=== PATIENT | female | born 1980 | race Caucasian/White ===

== ENCOUNTER 2016-08-11 06:21 | Emergency (ER) | payer OTHER ==
[2016-08-11 06:56] LABS: URINE BILIRUBIN NEGATIVE (NEGATIVE); URINE BLOOD 1+ (NEGATIVE); URINE COLOR AMBER; URINE GLUCOSE (UA) NEGATIVE (NEGATIVE); URINE LEUKOCYTE ESTERASE NEGATIVE (NEGATIVE); URINE NITRITE NEGATIVE (NEGATIVE); URINE PROTEIN 2+ (NEGATIVE); URINE UROBILINOGEN 1 mg/dL (0-1 mg/dl)
[2016-08-11 06:57] LABS: URINE APPEARANCE CLOUDY
[2016-08-11 06:58] LABS: HCG,QUALITATIVE URINE NEGATIVE
[2016-08-11 07:17] LABS: URINE BACTERIA RARE; URINE CASTS 4-6 HYALINE /lpf; URINE CRYSTALS 2+ CA OXALATE /hpf
[2016-08-12 15:02] LABS: CHLAMYDIA BD Negative (Negative); N.GONORRHOEAE BD Negative (Negative); SOURCE Urine (())
== END 2016-08-11 07:13 | disposition home or self-care (01) ==
LOC: ED 06:21
DX: N39.0 Urinary tract infection, site not specified (principal)